=== PATIENT | female | born 1935 | race Caucasian/White ===

== ENCOUNTER 2020-07-29 10:56 | Observation (INO) | payer MEDICARE ==
[~2020-07-29] VITALS: Ht 154.9 cm; Wt 59.0 kg
[2020-07-29 11:55] LABS: HEMOGLOBIN 11.7 gm/dl (12.3-15.3); RED BLOOD COUNT 4.11 M/UL (4.00-5.10); WHITE BLOOD COUNT 4.7 K/UL (4.5-11.0)
[2020-07-29 12:29] LABS: BUN/CREATININE RATIO 26 (0-10)
[2020-07-29] MEDS ORDERED: ELIQUIS5 MG PO (17:12)
[2020-07-29] MEDS ORDERED: LOPRESSOR 25 MG25 MG PO (17:12)
[2020-07-29] MEDS ORDERED: GABAPENTIN600 MG PO (17:12)
[2020-07-29] MEDS ORDERED: CITALOPRAM HBR40 MG PO (17:13)
[2020-07-29] MEDS ORDERED: VOLTAREN ARTHRI20 GM TP (17:14)
[2020-07-29] MEDS ORDERED: FUROSEMIDE40 MG PO (17:15)
[2020-07-29] MEDS ORDERED: MELOXICAM15 MG PO (17:15)
[2020-07-29] MEDS ORDERED: PROTONIX 40 MG40 M1 PO (17:15)
[2020-07-29] MEDS ORDERED: ATIVAN0.5 MG PO (17:16)
[2020-07-29] MEDS ORDERED: VITAMIN D 40400 UNIT PO (17:19)
[2020-07-30 04:22] LABS: HEMOGLOBIN 11.1 gm/dl (12.3-15.3); RED BLOOD COUNT 3.88 M/UL (4.00-5.10); WHITE BLOOD COUNT 4.4 K/UL (4.5-11.0)
[2020-07-30 04:44] LABS: BUN/CREATININE RATIO 26 (0-10)
== END 2020-07-30 16:00 | disposition home or self-care (01) ==
LOC: ER1 10:56 → M/S 16:33 → CDU 16:33 → M/S 21:07
PROVIDERS: Emergency Medicine; ADMIT Internal Medicine
DX: I25.110 Atherosclerotic heart disease of native coronary artery with unstable angina pectoris (principal); M94.0 Chondrocostal junction syndrome [Tietze]; Z20.828 Contact with and (suspected) exposure to other viral communicable diseases; I48.0 Paroxysmal atrial fibrillation; I10 Essential (primary) hypertension; E78.5 Hyperlipidemia, unspecified; E11.9 Type 2 diabetes mellitus without complications; M06.9 Rheumatoid arthritis, unspecified; J84.10 Pulmonary fibrosis, unspecified; Z86.73 Personal history of transient ischemic attack (TIA), and cerebral infarction without residual deficits; Z95.5 Presence of coronary angioplasty implant and graft
CPT/HCPCS: 36415; 71045; 80048; 80053; 82550; 82553; 83874; 83880; 84443; 84484; 85025; 93005; 96365; 96366; 96375; 99285; G0378; J1885; J2270; J2405; U0002

== ENCOUNTER 2021-09-02 18:13 | Inpatient (IN) | payer MEDICARE ==
[~2021-09-02] VITALS: Ht 154.9 cm; Wt 59.0 kg
[~2021-09-02 18:13] MED LIST: ATIVAN0.5 MG PO; CITALOPRAM HBR40 MG PO; ELIQUIS5 MG PO; FUROSEMIDE40 MG PO; GABAPENTIN600 MG PO; LOPRESSOR 25 MG25 MG PO; MELOXICAM15 MG PO; PROTONIX 40 MG40 M1 PO; VITAMIN D 40400 UNIT PO; VOLTAREN ARTHRI20 GM TP
[2021-09-02 19:27] LABS: HEMOGLOBIN 13.4 gm/dl (12.3-15.3); RED BLOOD COUNT 4.9 M/UL (4.00-5.10); WHITE BLOOD COUNT 3.3 K/UL (4.5-11.0)
[2021-09-02 19:31] LABS: BUN/CREATININE RATIO 15 (0-10)
[2021-09-03 04:48] LABS: HEMOGLOBIN 12.1 gm/dl (12.3-15.3); RED BLOOD COUNT 4.43 M/UL (4.00-5.10)
[2021-09-03 04:58] LABS: WHITE BLOOD COUNT 2.3 K/UL (4.5-11.0)
[2021-09-03 05:56] LABS: BUN/CREATININE RATIO 15 (0-10)
[2021-09-03] MEDS ORDERED: DONEPEZIL HCL5 MG PO (10:58)
[2021-09-03] MEDS ORDERED: MECLIZINE HCL25 MG PO (10:59)
[2021-09-03] MEDS ORDERED: LORAZEPAM0.5 MG PO (11:01)
[2021-09-04 05:38] LABS: HEMOGLOBIN 11.2 gm/dl (12.3-15.3); RED BLOOD COUNT 4.1 M/UL (4.00-5.10); WHITE BLOOD COUNT 3.1 K/UL (4.5-11.0)
[2021-09-04 06:21] LABS: BUN/CREATININE RATIO 20 (0-10)
--- NOTE | 2021-09-04 07:24 | NUR ---
patient comlaints of chest pain while receiving report from pm nurse, patient reports chest pain from 0-10 8 and pm nurse reported to md and received order. patient reports to pm nurse after giving morphine chest pain is better. checked on patient and reported that her chest pain is coming back and it's 8 again and felt like elephant sitting on her chest with sob noted. patient face flushed vitals sign was 127/79 95 20 93%, recheckek her pulse ox going 89. received order.
--- NOTE | 2021-09-04 07:46 | NUR ---
PER DR. DALAL INCREASE 02 to 4L
[2021-09-05 06:17] LABS: HEMOGLOBIN 10.6 gm/dl (12.3-15.3); RED BLOOD COUNT 3.88 M/UL (4.00-5.10)
[2021-09-05 06:19] LABS: WHITE BLOOD COUNT 4.2 K/UL (4.5-11.0)
[2021-09-05 06:46] LABS: BUN/CREATININE RATIO 19 (0-10)
[2021-09-06 03:42] LABS: HEMOGLOBIN 10.2 gm/dl (12.3-15.3); RED BLOOD COUNT 3.76 M/UL (4.00-5.10); WHITE BLOOD COUNT 4.3 K/UL (4.5-11.0)
[2021-09-06 04:26] LABS: BUN/CREATININE RATIO 19 (0-10)
[2021-09-07 04:58] LABS: HEMOGLOBIN 11.3 gm/dl (12.3-15.3); RED BLOOD COUNT 4.04 M/UL (4.00-5.10)
[2021-09-07 04:59] LABS: WHITE BLOOD COUNT 5.4 K/UL (4.5-11.0)
[2021-09-07 05:11] LABS: BUN/CREATININE RATIO 17 (0-10)
[2021-09-08 07:19] LABS: HEMOGLOBIN 11.8 gm/dl (12.3-15.3); RED BLOOD COUNT 4.37 M/UL (4.00-5.10); WHITE BLOOD COUNT 6.3 K/UL (4.5-11.0)
[2021-09-08 07:29] LABS: BUN/CREATININE RATIO 20 (0-10)
[2021-09-09 06:26] LABS: HEMOGLOBIN 11.9 gm/dl (12.3-15.3); RED BLOOD COUNT 4.37 M/UL (4.00-5.10); WHITE BLOOD COUNT 6.8 K/UL (4.5-11.0)
--- NOTE | 2021-09-09 12:10 | NUR ---
PATIENT O2 SAT 87% ON ROOM AIR.
[2021-09-09] MEDS ORDERED: IPRAT-ALBUT 0.5-3 ML NEB (14:46)
[2021-09-09] MEDS ORDERED: FUROSEMIDE20 MG PO (14:46)
[2021-09-09] MEDS ORDERED: ISOSORBIDE MONO30 MG PO (14:46)
[2021-09-09] MEDS ORDERED: OMNICEF 300 MG300 MG PO (14:46)
[2021-09-09] MEDS ORDERED: BUDESONIDE0.5 MG/2 M NEB (14:46)
[2021-09-09] MEDS ORDERED: DECADRON6 MG PO (14:46)
[2021-09-09] MEDS ORDERED: ASPIRIN EC81 MG PO (14:46)
[2021-09-09] MEDS ORDERED: AMLODIPINE BESYL5 MG PO (14:46)
[2021-09-09] MEDS ORDERED: PERCOCET 5/325 T1 EA PO (14:46)
== END 2021-09-09 15:30 | disposition home health service (06) | DRG 177 ==
LOC: ER1 18:13 → CDU 21:36 → M/S 21:36
PROVIDERS: Internal Medicine; Physician Assistant; ADMIT Internal Medicine
PROC: 3E0333Z Introduction of Anti-inflammatory into Peripheral Vein, Percutaneous Approach (ICD-10-PCS; principal; 2021-09-02)
PROC: XW033E5 Introduction of Remdesivir Anti-infective into Peripheral Vein, Percutaneous Approach, New Technology Group 5 (ICD-10-PCS; 2021-09-02)
PROC: 8E0ZXY6 Isolation (ICD-10-PCS; 2021-09-02)
DX: U07.1 COVID-19 (principal); J12.82 Pneumonia due to coronavirus disease 2019; J96.01 Acute respiratory failure with hypoxia; I10 Essential (primary) hypertension; K21.9 Gastro-esophageal reflux disease without esophagitis; M19.90 Unspecified osteoarthritis, unspecified site; M81.0 Age-related osteoporosis without current pathological fracture; I48.0 Paroxysmal atrial fibrillation; I25.10 Atherosclerotic heart disease of native coronary artery without angina pectoris; E78.5 Hyperlipidemia, unspecified; M06.9 Rheumatoid arthritis, unspecified; Z96.698 Presence of other orthopedic joint implants; E55.9 Vitamin D deficiency, unspecified; Z96.643 Presence of artificial hip joint, bilateral; R53.81 Other malaise; E87.6 Hypokalemia; I49.3 Ventricular premature depolarization; D69.6 Thrombocytopenia, unspecified; Z79.01 Long term (current) use of anticoagulants; Z95.5 Presence of coronary angioplasty implant and graft; Z99.81 Dependence on supplemental oxygen; Z86.73 Personal history of transient ischemic attack (TIA), and cerebral infarction without residual deficits; Z90.710 Acquired absence of both cervix and uterus; Z87.81 Personal history of (healed) traumatic fracture; Z98.51 Tubal ligation status; Z82.49 Family history of ischemic heart disease and other diseases of the circulatory system; Z83.49 Family history of other endocrine, nutritional and metabolic diseases; Z91.81 History of falling
CPT/HCPCS: 0240U; 36415; 36600; 71045; 71275; 80048; 80053; 81001; 82550; 82553; 82803; 83605; 83615; 83735; 83874; 83880; 84484; 85025; 85027; 86140; 87040; 87081; 87086; 87880; 93005; 94640; 94664; 94760; 96365; 96375; 97116-GP-CQ; 97161; 97166; 97530; 99285; J0248; J0456; J0696; J1100; J2270; J7030; Q9967

== ENCOUNTER 2021-12-11 23:08 | Emergency (ER) | payer MEDICARE ==
[~2021-12-11 23:08] MED LIST changes: +AMLODIPINE BESYL5 MG PO; +ASPIRIN EC81 MG PO; +BUDESONIDE0.5 MG/2 M NEB; +DECADRON6 MG PO; +DONEPEZIL HCL5 MG PO; +FUROSEMIDE20 MG PO; +IPRAT-ALBUT 0.5-3 ML NEB; +ISOSORBIDE MONO30 MG PO; +LORAZEPAM0.5 MG PO; +MECLIZINE HCL25 MG PO; +OMNICEF 300 MG300 MG PO; +PERCOCET 5/325 T1 EA PO
[2021-12-12 00:48] LABS: HEMOGLOBIN 11.4 gm/dl (12.3-15.3); RED BLOOD COUNT 4.11 M/UL (4.00-5.10); WHITE BLOOD COUNT 5.2 K/UL (4.5-11.0)
[2021-12-12 01:08] LABS: BUN/CREATININE RATIO 14 (0-10)
[2021-12-12] MEDS ORDERED: CEPHALEXIN500 M1 PO (02:21)
== END 2021-12-12 03:30 | disposition home or self-care (01) ==
LOC: ER1 23:08
PROVIDERS: Physician Assistant Medical
DX: L03.115 Cellulitis of right lower limb (principal); I48.91 Unspecified atrial fibrillation; I11.0 Hypertensive heart disease with heart failure; I50.9 Heart failure, unspecified; K21.9 Gastro-esophageal reflux disease without esophagitis; Z95.5 Presence of coronary angioplasty implant and graft; Z79.82 Long term (current) use of aspirin; Z79.01 Long term (current) use of anticoagulants
CPT/HCPCS: 80053; 85025; 85379; 85610; 85730; 99283

== ENCOUNTER → 2021-12-12 | Outpatient (CLI) | payer MEDICARE ==
[~2021-12-12] MED LIST changes: +CEPHALEXIN500 M1 PO
== END ==
LOC: US 13:18
DX: R22.41 Localized swelling, mass and lump, right lower limb (principal)
CPT/HCPCS: 93971

== ENCOUNTER 2021-12-27 19:48 | Emergency (ER) | payer MEDICARE ==
[2021-12-27 20:12] LABS: HEMOGLOBIN 11.2 gm/dl (12.3-15.3); RED BLOOD COUNT 4.07 M/UL (4.00-5.10); WHITE BLOOD COUNT 4.8 K/UL (4.5-11.0)
== END 2021-12-27 22:45 | disposition home or self-care (01) ==
LOC: ER1 19:48
PROVIDERS: Family Medicine
DX: R10.13 Epigastric pain (principal); R42 Dizziness and giddiness; I48.91 Unspecified atrial fibrillation; Z95.5 Presence of coronary angioplasty implant and graft; Z90.49 Acquired absence of other specified parts of digestive tract; Z90.89 Acquired absence of other organs
CPT/HCPCS: 80053; 81001; 82550; 82553; 83690; 84484; 85025; 93005; 99284; Q9967